=== PATIENT | female | born 1990 | race Caucasian/White ===

== ENCOUNTER → 2023-09-30 | Outpatient (CLI) | payer OTHER ==
[~2023-09-30] MED LIST: ADVIL200 MG PO; ATIVAN 1MG T1 MG/TAB PO; COLACE 100100 MG/CAP PO; FLEXERIL 1010 MG/TAB PO; IBU800 M1 PO; IRON325 MG PO; MAGNESIUM200 MG PO; OMNICEF 300MG300 MG PO; OSCAL 500 TAB500 MG; PERCOCET 325 MG1 TA2 PO; PRENATAL; ZANTAC 7575 MG PO; ZYRTEC 10MG10 MG PO; [UNRECOGNIZED DRUG - OTHER] PO
== END ==
LOC: COL.RAD 08:11
DX: K80.20 Calculus of gallbladder without cholecystitis without obstruction (principal)